=== PATIENT | male | born 1975 | race Caucasian/White ===

== ENCOUNTER 2024-01-24 08:33 | Outpatient (REF) | payer OTHER, SELFPAY ==
[2024-01-24 09:10] LABS: MANUAL DIFF FLAG NO
[2024-01-24 09:33] LABS: Basophils Absolute Auto 0.1 X10*3/uL (0.0-0.2); Basophils Percent Auto 1.1 % (0-2); Eosinophils Absolute Auto 0.4 X10*3/uL (0.0-0.4); Eosinophils Percent Auto 5.4 % (0-4); Hematocrit 44.2 % (42.0-52.0); Hemoglobin 14.7 g/dl (14.0-18.0); Imm Gran Abs Auto 0.02 X10*3/uL (0.00-0.03); Imm Gran Pct Auto 0.3 % (0.0-0.4); Lymphocytes Percent Auto 30.6 % (20-40); Mean Corpuscular HGB Conc 33.3 g/dl (31.0-36.0); Mean Corpuscular Volume 90.2 fL (80.0-98.0); Mean Platelet Volume 10.9 fL (9.4-12.4); Monocytes Absolute Auto 0.7 X10*3/uL (0.1-1.2); Monocytes Percent Auto 10.8 % (2-11); Neutrophils Absolute Auto 3.4 x10*3/uL (2.0-8.3); Neutrophils Percent Auto 51.8 % (45-73); Platelet Count 337 X10*3/uL (160-400); Red Cell Distribution Width 13.3 % (11.0-16.0); White Blood Count 6.5 X10*3/uL (4.8-10.8)
[2024-01-24 09:42] LABS: Estimated Average Glucose 100 mg/dL; Hemoglobin A1c % 5.1 % (<6.0)
[2024-01-24 10:12] LABS: Erythrocyte Sedimentation Rate 7 MM/HR (0-15)
[2024-01-24 10:41] LABS: Folate 7.9 ng/mL (> or = 4.0); Vitamin B12 187 pg/mL (200-900)
[2024-01-24 14:46] LABS: Alanine Aminotransferase 19 U/L (0-40); Albumin Level 4.8 g/dL (3.5-5.0); Alkaline Phosphatase 67 U/L (39-117); Anion Gap 15 (12-20); Aspartate Amino Transferase 19 U/L (5-37); Bilirubin Total 0.5 mg/dL (0.0-1.0); Blood Urea Nitrogen 9 mg/dL (9-16); C Reactive Protein < 0.10 mg/dL (< or = 0.50); Calcium 10.3 mg/dL (8.4-10.2); Carbon Dioxide 27 mmol/L (22-29); Chloride 105 mmol/L (96-108); Cholesterol 204 mg/dL (<200); Estimated Glomerular Filt Rate > 60; Glucose Fasting 102 mg/dL (60-99); HDL Cholesterol 69 mg/dL (>40); Iron 88 mcg/dL (45-160); LDL Cholesterol Calculated 121 mg/dL (<100); Magnesium 2.1 mg/dL (1.6-2.6); Percent Iron Saturation 26 % (15-50); Phosphorus 2.6 mg/dL (2.7-4.5); Sodium 143 mmol/L (135-145); Total Iron Binding Capacity 337 mcg/dL (228-428); Total Protein 8.2 g/dL (6.5-8.0); Triglycerides 71 mg/dL (<150); Unsaturated Iron Binding 249 ug/dL
[2024-01-24 15:00] LABS: Ferritin 57 ng/mL (20-250); Free T4 (Free Thyroxine) 1.12 ng/dL (0.71-1.85); Thyroid Stimulating Hormone 1.12 uIU/mL (0.32-4.0); Vitamin D 25-OH Total 32.7 ng/mL (>30)
[2024-01-25 08:19] LABS: Triiodothyronine T3 Free 3.7 pg/mL (2.3-4.2)
[2024-01-25 08:49] LABS: Prolactin 4.7 ng/mL (2.0-18.0)
[2024-01-27 19:29] LABS: Homocysteine 20.9 umol/L (<11.4)
[2024-01-28 00:53] LABS: Zinc 85 mcg/dL (60-130)
[2024-01-28 01:09] LABS: Lyme Abs Screen <0.90 index
[2024-01-29 16:14] LABS: Vitamin B6 20.2 ng/mL (2.1-21.7)
[2024-01-31 06:28] LABS: Vitamin B1 10 nmol/L (8-30)
== END 2024-01-24 08:34 | disposition home or self-care (01) ==
LOC: HO.LAB 08:33
PROVIDERS: PCP Nurse Practitioner Family; Visit Provider Psychiatry & Neurology Psychiatry
DX: F39 Unspecified mood [affective] disorder (principal); Z13.1 Encounter for screening for diabetes mellitus
CPT/HCPCS: 36415; 80053; 80061; 82306; 82607; 82728; 82746; 83036; 83090; 83540; 83735; 84100; 84146; 84207; 84425; 84439; 84443; 84481; 84630; 85025; 85652; 86140; 86617; 86618

== ENCOUNTER 2024-01-31 07:51 | Outpatient (REF) | payer OTHER, SELFPAY ==
[2024-01-31 08:44] LABS: Lithium 0.16 mmol/L (0.60-1.20)
== END 2024-01-31 07:52 | disposition home or self-care (01) ==
LOC: HO.LAB 07:51
PROVIDERS: PCP Nurse Practitioner Family; Visit Provider Psychiatry & Neurology Psychiatry
DX: F31.32 Bipolar disorder, current episode depressed, moderate (principal); F41.1 Generalized anxiety disorder; Z79.899 Other long term (current) drug therapy
CPT/HCPCS: 36415; 80178

== ENCOUNTER 2024-01-31 10:15 | Outpatient (RCR) | payer OTHER, SELFPAY ==
--- NOTE | 2024-01-20 13:49 | HO.PS.ADMBH ---
HPI Date of Service: 01/20/24 Chief Complaint: bipolar,depression Meds/Allergies Allergies Allergies Allergy/AdvReac Type Severity Reaction Status Date / Time Unable to Assess Allergy Verified 01/20/24 13:48 Assessment & Plan Certification I certify that partial hospital treatment is medically necessary due to the symptoms and problems resulting from the patient's mental illness and the failure to treat the patient at the partial hospital level of care would likely result in the patient requiring inpatient psychiatric care which could not be prevented at a less intensive level of care. Time Spent With Patient Time: Total time managing care of this patient today ____ minutes.
--- NOTE | 2024-01-20 14:35 | PC.NURSE ---
Addendum entered by Desirae Polk RN 01/20/24 14:36: Patient is A&Ox 4, currently lives with supportive . Patient is well groomed, pleasant and cooperative. Patient makes good eye contact. He reports feeling hopeless and struggling more often over the past 6 months. He reports feelings of despair and despondent and is eager for a medication assessment . He reports he has currently been on the current meds for a while without any improvement or changes in mood. PMH includes scoliosis and ulcerative colitis and states he has not had a flair in a long while. Patient reports that he can fall asleep with the use of marijuana vape but wakes approximately four hours later. He reports he has been taking his meds. daily as prescribed. Reconciled meds with pharmacy that states Lamotrigine is 200mg BID and pt states he takes 400mg daily in am. VS 141/85, P- 75, Wt 165 lbs. Denies thoughts of SI/HI . Safety plan reviewed and copy provided. Original Note: Patient is referred by his psychiatric provider Lawrence Azar and recommended by his who is a therapist. He reports felling depressed and struggling for the past 6 months. He reports having a history of depression for about 15 years and feels that his current medications are no longer working. He would like to discuss possible medication changes while being under care in the program. Patient reports he lives with his supportive and sees a therapist weekly. He is a graduate from [employer] with a Phd in sociology and currently works as a Professor at [employer].
[2024-01-20 14:38] VITALS: BP 141/85; PULSE 75; RESP 14; TEMP 36.6
--- NOTE | 2024-01-21 22:38 | P.HPPSP_ITS ---
HPI Date of Service: 01/21/24 Chief Complaint: bipolar,depression Sources of Information: patient interviewed, chart reviewed and crisis/core team assessment reviewed HPI Narrative: Patient is a 48 yo male with long history of treatment resistant depression, chronic SI who was referred to PHP by his therapist of 7 years. I have a lot of thoughts of . It's been going on for a while on and off. (My therapist) she helps me with this. Has been experiencing more immersive morbid and existential ruminations and thoughts of giving up on life, been feeling really hopeless and despondent...lately I've been thinking 'hey I gave it a go (at life). 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 He relays great difficulty contending with poor focus, low energy, low motivation. There are days I would have to cancel class or call out because I just couldn't manage . He reports a long standing history of treatment-resistant depression, has been on many antidepressant that do not seem to help. He mentions having only brief moments where the depression subsides, sometimes for an evening or a weekend, but always comes back. He reports last time was in June when he was on vacation with his and was able to forget about his depression. He says he loves his job and overall has a good relationship with his . He reports recently having a breakdown 2 weeks ago in [place], was in the car and felt trapped...mental anguish . Denies any particular triggers. Endorses ongoing chronic SI with vague plan, I've never gotten to the point I have had a plan but obviously benzos would be too easy . He currently denies any suicidal intention, urge or plan. Just a feeling that's always there...like is life worth living if I'm always going to be depressed . He denies extreme mood swings, anger or irritability, denies any hypomanic or manic symptoms. He mentions a history of possible bipolar disorder as mentioned by a previous provider which was based on a single episode many many years ago where he went a long time without sleep or very little sleep...there was no risk-taking, nothing really that extreme going on. Just an elevated sense of self... or maybe I was just happy . . Past Psychiatric History: No previous IPLOC, PHP or detox admissions Denies any SI or SIBs Chronic SI often thinking of how/when to leave but usually vague plan. Protective factors Denies any aggressive behaviors 20 yrs ago he struggled more with social anxiety The severe depression and despair has been around more in the past 10 years Therapist: Jina Rodgers (x 7 yrs) Psych provider: Lawrence Azar APRN (x 17 yrs) Previous trials: Zoloft, Prozac, Wellbutrin (nightmares, insomnia), Celexa, Lexapro, Paxil. Lamictal (current >10 yrs), vilazidone (current >1 yr) CURRENT MEDICATIONS: Lamictal 400 mg/d (split 200 BID) - over 10 yrs Viibryd 20 mg qd PMFSH Narrative: Scoliosis, mild - takes Tylenol sometimes for mild pain Ulcerative colitis (has not had any flare-ups in years, 7-8 yrs ago) Denies any sigificant illness, injuries Denies any surgeries Denies any seizures Denies any concussions or TBI Vegan diet for several years Ht:6'0 Wt: 165 lbs ALL: NKDA ROS: Often feels shaky Social History: , lives at home with No children Graduate education at [employer]- earned PhD degree in Sociology Employed as professor at [employer] [place] Substance History: Alcohol use - regularly usually 1-3 cocktails with dinner on a Fri or Sat night, usually <2 or 3 times a week, few instances of binge drinking in the past, does not feel he has significant issues with alcohol Caffeine use - too much usually 2-3 jumbo coffee espressos Cannabis use sometimes used for sleep No nicotine since age 21 Trauma History: Emotional Parental loss at age 7 (father) Struggling with ongoing grief, following loss of his beloved dog Swapna in Mar 2023 whose loss was traumatic for him Meds/Allergies Meds Home Medications ?Medication ?Instructions ?Recorded ?Confirmed ?Type lamotrigine 200 mg tablet 200 mg PO BID 01/20/24 01/20/24 History vilazodone 20 mg tablet 20 mg PO DAILY 01/20/24 01/20/24 History Allergies Allergies Allergy/AdvReac Type Severity Reaction Status Date / Time Unable to Assess Allergy Verified 02/01/24 22:50 Mental Status Exam Mental Status Exam Narrative: Alert, oriented, in no acute distress. Calm, cooperative, engaged. No psychomotor agitation or neurovegetative retardation. Eye contact maintained. Mood depressed, affect constricted. Speech normal. Thought process linear, coherent. Thought content related to stressors, hopelessness, morbid rumination, some future-orientation, chronic SI persists with vague plan, but denies any urge, intent. Dneies any AI or HI. No paranoia or delusional content elicited. No evidence of psychosis. Insight and judgment intact. Assessment & Plan Assessment & Plan (1) Bipolar disorder, most recent episode depressed: Status: Acute Code(s): F31.30 - Bipolar disorder, current episode depressed, mild or moderate severity, unspecified Assessment and Plan: Bipolar dx per patient history R/o MDD (unipolar depression) Treatment-resistant depression (TRBD vs TRD) will explore possible medical c onditions that may be contributing r/o alcohol-induced mood disorder or other SIMD (?pt underreporting, though does not seem likely) (2) Dysthymic syndrome: Status: Acute Code(s): F34.1 - Dysthymic disorder (3) MARKY (generalized anxiety disorder): Status: Acute Code(s): F41.1 - Generalized anxiety disorder Plan Admit to PHP VS reviewed: pierre, BP 141/85;?75 bpm may consider starting on lithium for augmentation treatment of TRD/chronic SI but will hold off pending lab work also reviewed other treatment modalities including Sprivato, TMS, ECT, for now continue regular medications? Will check routine lab work including checking TFTs, check for any AI disorders, also nutritional deficiencies that might contribute to TRD given hx of Ulcerative Colitis and long standing history of Vegan diet EKG, routine for baseline QTc for medication considerations UDS as indicated MassPat reviewed Continue to monitor as per protocol Patient educated on: diagnosis, medication risk/benefits, substance abuse and TMS Informed Consent: understands Reason for continued partial hosp. stay Substantial Risk for: inability to function, rapid decompensation and med/psych decompensation Certification I certify that partial hospital treatment is medically necessary due to the symptoms and problems resulting from the patient's mental illness and the failure to treat the patient at the partial hospital level of care would likely result in the patient requiring inpatient psychiatric care which could not be prevented at a less intensive level of care. Time Spent With Patient Time: Total time managing care of this patient today __60__ minutes.
--- NOTE | 2024-01-22 14:47 | HO.PHP ---
[facility] staff member met with Shreyas to review his treatment plan but Shreyas wanted to process a situation that occurred in the morning that was still affecting him. Shreyas disclosed that he is uncertain if he will be continuing the program because he is feeling unsafe. PHP staff explored what is causing him to feel unsafe. Shreyas shared a negative interaction he had with the forestry and wildlife manager when he was dysregulated and felt unheard/seen in that moment. PHP staff member acknowledged his concerns and explored if he would like to further discuss with the forestry and wildlife manager, but he expressed that he does not want to have any additional interactions with her because the first two were negative. PHP staff member was receptive and informed him that she would like for him to try to continue in the program if he is feeling safe enough but she also hears that he is not feeling safe. Shreyas did state he would like to stay but is feeling conflicted due to that interaction and is appalled with the treatment received. PHP staff member engaged in active listening and supported him with where he is at currently. Shreyas shared the negative thoughts he has been struggling with and stated he has been feeling as though he is in a challenging space. PHP staff member assessed for any safety concerns. Shreyas disclosed that he has SI thoughts without a plan or intent. Shreyas disclosed that he would not act on those thoughts. Shreyas voiced that he is feeling safe overall. Shreyas talked about how he often masks behaviors and is worried about disclosing what occurred to his because he is worried about her reacting due to her being protective of him. [facility] staff member was receptive and provided him with verbal prompts around how to approach the conversation of what he experienced today. Shreyas appreciated the clinician's feedback. [facility] staff member also encouraged Shreyas to explore the pros and cons around returning to the program tonight. Shreyas was in agreement. PHP staff member stated she is hoping that he will return but also wants him to know that she hears his concerns. Shreyas was receptive. PHP staff member also encouraged him to implement a gratitude exercise when he gets home so he does not get stuck on ruminating thoughts around that situation. Shreyas was receptive and stated he is going to go home and do a crossword puzzle, along with sit out on his back deck. Shreyas reported no safety concerns and stated he is going to attempt coming into program tomorrow.
--- NOTE | 2024-01-23 14:08 | HO.PHP ---
Client's case has been opened and reviewed in team.
--- NOTE | 2024-01-24 22:41 | HO.PHPPROGNO ---
Subjective Subjective Date of Service: 01/24/24 Reason For Visit: bipolar,depression Interim History: Patient seen for follow-up. COntinues with depressed mood, transient feelings of hopelessness, feeling demoralized, passive SI. But remains engageable and eager for treatment. Also handed a lab slip for routine labs as well as TFTs, renal fxn and will also check on vitamin levels given long standing vegan diet. He is agreeable to starting on augmentation for TRD and chronic SI with lithium. NO kidney issues, does not take IB regularly, will be consistent with po hydration. We reviewed risks/benefits/side effects asso with lithium. Medication Compliance: Yes Side effects from medications: No Attending Groups: Yes Review of Systems Acute medical concerns: No Assessment & Plan Assessment & Plan (1) Bipolar disorder, most recent episode depressed: Status: Acute Code(s): F31.30 - Bipolar disorder, current episode depressed, mild or moderate severity, unspecified (2) Dysthymic syndrome: Status: Acute Code(s): F34.1 - Dysthymic disorder (3) MARKY (generalized anxiety disorder): Status: Acute Code(s): F41.1 - Generalized anxiety disorder Plan start lithium 150 mg qd (may consider increasing to 300 ER as tolerated as augmentation for depression, target chronic SI) continue lamotrigine 200 mg BID continue vilazodone 20 mg qd (will plan to taper off or transition to another AD that works better with Li) continue other regular medications? Routine lab work reviewed, low B12, (homocysteine level and other nutritional labs still pending) Continue to monitor Patient educated on: diagnosis and medication risk/benefits Informed Consent: understands Reason for contiued partial hosp. stay Substantial Risk for: inability to function and med/psych decompensation Certification I certify that partial hospital treatment is medically necessary due to the symptoms and problems resulting from the patient's mental illness and the failure to treat the patient at the partial hospital level of care would likely result in the patient requiring inpatient psychiatric care which could not be prevented at a less intensive level of care. Total time managing care of this patient today __30__ minutes. Discharge Plan Discharge Attending provider: Madelyn De La Rosa Medications: New cholecalciferol (vitamin D3) [Vitamin D3] 125 mcg (5,000 unit) tablet 125 mcg PO DAILY Qty: 30 0RF zinc gluconate 30 mg tablet 30 mg PO DAILY Qty: 30 0RF lithium carbonate 300 mg tablet extended release 300 mg PO BEDTIME Qty: 30 0RF Continued lamotrigine 200 mg tablet 200 mg PO BID Rx Instructions: RX states 200mg BID, pt reports taking 400mg daily in AM vilazodone 20 mg tablet 20 mg PO DAILY Stand Alone Forms: Patient Portal Discharge page Print Language: Cape Verdean
--- NOTE | 2024-01-28 10:05 | P.PNPSP_ITS ---
Subjective Subjective Date of Service: 01/28/24 Reason For Visit: bipolar,depression Interim History: met with patient. Chart reviewed. Noted partial hospital provider contacts on 01/24/2024. Started lithium 150 mg daily for depression, hopelessness and thoughts of . Also on lamotrigine and vilazodone. Reviewed lab work from 01/24/2024 and no concerns regarding kidney or thyroid function. Patient reports no significant side effects from starting lithium 150 mg, with the exception of some increased thirst and maybe sedation. Relief regarding lab work. Otherwise ongoing depression, intermittent hopelessness and thoughts of , lack of motivation. No active SI. No psychosis. Does feel supported by spouse who is a therapist, already established therapist in the community and his psychiatric provider whom he has worked with for a number of years. We discussed increasing dose to 300 mg and getting a level drawn before discharging from [facility] hospital program on Saturday01/31/2024. Patient felt positive regarding plan. Plan: Increase lithium to 300mg bedtime. Get level AM 01/[address] De La Rosa before discharge Otherwise no changes Medication Compliance: Yes Side effects from medications: Yes ( Perhaps dry mouth and sedation) Attending Groups: Yes Review of Systems Acute medical concerns: No Review of Systems Review of Systems unremarkable Mental Status Exam Mental Status Exam Narrative: pleasant. Engaged. Casually dressed and presented. Good hygiene. Organized articulate. Is depressed. Passive thoughts of . No active SI. Feeling supported. No HI. No agitation or psychosis. Insight and judgment fair Assessment & Plan Assessment & Plan (1) Bipolar disorder, most recent episode depressed: Status: Acute Code(s): F31.30 - Bipolar disorder, current episode depressed, mild or moderate severity, unspecified (2) Dysthymic syndrome: Status: Acute Code(s): F34.1 - Dysthymic disorder (3) MARKY (generalized anxiety disorder): Status: Acute Code(s): F41.1 - Generalized anxiety disorder Plan Increase lithium to 300mg bedtime. Get level AM 01/[address] De La Rosa before discharge Otherwise no changes Patient educated on: diagnosis and medication risk/benefits Informed Consent: understands Reason for contiued partial hosp. stay Substantial Risk for: inability to function Certification I certify that partial hospital treatment is medically necessary due to the symptoms and problems resulting from the patient's mental illness and the failure to treat the patient at the partial hospital level of care would likely result in the patient requiring inpatient psychiatric care which could not be prevented at a less intensive level of care. Total time managing care of this patient today __25__ minutes. Discharge Plan Discharge Attending provider: Madelyn De La Rosa Medications: New lithium carbonate 150 mg capsule 150 mg PO BEDTIME Qty: 20 0RF Continued lamotrigine 200 mg tablet 200 mg PO BID Rx Instructions: RX states 200mg BID, pt reports taking 400mg daily in AM vilazodone 20 mg tablet 20 mg PO DAILY Print Language: Guyanese Telehealth Telehealth Telehealth Platform: Other (please specify) ( [employer]) Location of provider rendering services: practice address ( [place]) Location of patient: other ( partial hospital program) Patient Identification confirmed using: Name, : Yes Telehealth method: video Minutes spent on Phone/Video with Pt.: 15
--- NOTE | 2024-01-31 12:00 | HO.PHPPROGNO ---
Subjective Subjective Date of Service: 01/31/24 Reason For Visit: bipolar,depression Interim History: Patient seen for follow-up, anticipating discharge at the end of program today.? Has been tolerating lithium, was bumped up to 300 mg qhs earlier in week by covering provider. He is eager to start on supplementation for numerous deficiencies which is not surprisingly given long history of vegan diet and has not been as conscientious about finding alternatives for the lack of protein - daily or meat in his diet. Homocysteine elevated, which is a further indication of vitamin B12 deficiency, insuffient levels of B1 and could beenfit from additional folate. Reports no acute issues or concerns. Medication compliant, medications well-tolerated. Denies any adverse effects.?Mood is still depress, but he relays feeling more hopeful. Denies thoughts of harming self or others at this time. Denies any aggressive ideation or HI. Denies any paranoia or AH or VH. Sleep, appetite, energy stable. Medication Compliance: Yes Side effects from medications: No Attending Groups: Yes Review of Systems Acute medical concerns: No Mental Status Exam Mental Status Exam Narrative: Alert, oriented, in no acute distress. Calm, cooperative, engaged. No psychomotor agitation or neurovegetative retardation. Eye contact maintained. Mood depressed, affect constricted. Speech normal. Thought process linear, coherent. Thought content related to stressors, future-orientation, chronic SI persists but denies any urge, plan or intent. Denies any AI or HI. No paranoia or delusional content elicited. No evidence of psychosis. Insight and judgment intact. Assessment & Plan Assessment & Plan (1) Bipolar disorder, most recent episode depressed: Status: Acute Code(s): F31.30 - Bipolar disorder, current episode depressed, mild or moderate severity, unspecified (2) Dysthymic syndrome: Status: Acute Code(s): F34.1 - Dysthymic disorder (3) MARKY (generalized anxiety disorder): Status: Acute Code(s): F41.1 - Generalized anxiety disorder (4) B12 deficiency: Status: Acute Code(s): E53.8 - Deficiency of other specified B group vitamins Assessment and Plan: elevated homocysteine (5) Vitamin D insufficiency: Status: Acute Code(s): E55.9 - Vitamin D deficiency, unspecified Plan Discharge from [facility] Continue regular medications start methylated vitamin B complex (including B1,B9,B12 as befotiamine, L-5-MTHF, methylcobalamin) once daily start zinc 30 mg qd start vitamin D3 5000 IU daily suggest rechecking levels in 6 months Refills sent to pharmacy Will defer further medication management to outpatient provider *Safety plan reviewed *Discharge diagnoses, treatment course, discharge plan have been reviewed with patient (including medication regime, medication management, potential side effects) as well as treatment rationale were also revisited *Discharge paperwork signed and given to patient, copy sent for scanning to chart Patient educated on: diagnosis, medication risk/benefits, substance abuse and TMS Informed Consent: understands Certification I certify that partial hospital treatment is medically necessary due to the symptoms and problems resulting from the patient's mental illness and the failure to treat the patient at the partial hospital level of care would likely result in the patient requiring inpatient psychiatric care which could not be prevented at a less intensive level of care. Total time managing care of this patient today __30__ minutes. Discharge Plan Discharge Attending provider: Madelyn De La Rosa Medications: New cholecalciferol (vitamin D3) [Vitamin D3] 125 mcg (5,000 unit) tablet 125 mcg PO DAILY Qty: 30 0RF zinc gluconate 30 mg tablet 30 mg PO DAILY Qty: 30 0RF lithium carbonate 300 mg tablet extended release 300 mg PO BEDTIME Qty: 30 0RF Continued lamotrigine 200 mg tablet 200 mg PO BID Rx Instructions: RX states 200mg BID, pt reports taking 400mg daily in AM vilazodone 20 mg tablet 20 mg PO DAILY Stand Alone Forms: Patient Portal Discharge page Print Language: Welsh
== END 2024-01-31 23:59 | disposition home or self-care (01) ==
LOC: HO.PHPA 10:15
PROVIDERS: Visit Provider Psychiatry & Neurology Psychiatry
DX: F31.30 Bipolar disorder, current episode depressed, mild or moderate severity, unspecified (principal); F34.1 Dysthymic disorder; F41.1 Generalized anxiety disorder; Z79.899 Other long term (current) drug therapy
CPT/HCPCS: 90791; 90853